=== PATIENT | female | born 1950 ===

== ENCOUNTER → 2018-04-26 | Outpatient (CLI) | payer MEDICARE, OTHER | LOC: PLD 14:34 → LAB SHORT 14:34 | DX: C50.911 Malignant neoplasm of unspecified site of right female breast (principal); Z17.0 Estrogen receptor positive status [ER+] | CPT/HCPCS: 88305; 88360 ==

== ENCOUNTER 2021-09-18 06:00 | Observation (INO) | payer MEDICARE, OTHER ==
[~2021-09-18] VITALS: Ht 162.6 cm; Wt 49.9 kg
[2021-09-18 06:41] LABS: BASOPHILS ABSOLUTE AUTO 0.02 K/mm3 (0.00-0.23); BASOPHILS PERCENT AUTO 0 % (0-2); EOSINOPHILS PERCENT AUTO 0 % (0-6); Hematocrit 18.1 % (33.0-51.0); IMMATURE GRAN ABSOLUTE AUTO 0.05 K/mm3 (0.00-0.10); IMMATURE GRAN PERCENT AUTO 1 % (0-1); LYMPHOCYTES ABSOLUTE AUTO 1.61 K/mm3 (0.84-5.20); LYMPHOCYTES PERCENT AUTO 16 % (21-46); MONOCYTES PERCENT AUTO 6 % (4-13); Mean Corpuscular Volume 66 fL (80-100); Mean Platelet Volume 9.2 fL (9.1-12.4); NEUTROPHILS ABSOLUTE AUTO 7.62 K/mm3 (1.96-9.15); NEUTROPHILS PERCENT AUTO 77 % (41-73); NRBC ABSOLUTE 0.03 K/mm3 (0.00-0.02); NRBC Auto 0.3 /100 WBC (0.0-0.2); Platelet Count 549 K/mm3 (150-400); RDW Coefficient Variation 20.3 % (11.7-14.2); RDW Standard Deviation 47.2 fL (35.1-46.3); Red Blood Cell Count 2.76 M/mm3 (3.80-5.20)
[2021-09-18 07:19] LABS: Hemoglobin 4.7 g/dL (11.5-16.0)
[2021-09-18 07:23] LABS: Alanine Aminotransfer (ALT/SGP 12 U/L (12-78); Albumin, Blood 2.1 g/dL (3.4-5.0); Albumin/Globulin Ratio 0.5 (0.8-1.8); Alk Phos 107 U/L (50-136); Anion Gap 9 mmol/L (6-16); Aspartate Aminotrans (AST/SGOT 14 U/L (12-37); Bilirubin, Total 0.3 mg/dL (0.1-1.0); Blood Urea Nitrogen 8 mg/dL (8-24); Bun/Creatinine Ratio 16.2 (12.0-20.0); CO2, Blood 21 mmol/L (21-32); Calcium, Blood 8.9 mg/dL (8.5-10.1); Chloride, Blood 109 mmol/L (98-108); Globulin, Blood 4.2 g/dL (2.2-4.0); Glomerular Filtration Rate >60 (60-); Glucose, Blood 92 mg/dL (70-99); Potassium, Blood 3.9 mmol/L (3.5-5.5); Sodium, Blood 139 mmol/L (136-145); Total Protein, Blood 6.3 g/dL (6.4-8.2)
[2021-09-18 08:07] LABS: Source, Urine Clean Catch
[2021-09-18 08:16] LABS: Appearance, Urine Hazy (Clear); Bilirubin, Urine Neg (Neg); Blood, Urine Neg (Neg); Color, Urine Yellow (P-Yellow); Glucose Qualitative, Urine Neg (Neg); Ketones, Urine 3+ (Neg); Leukocyte Esterase, Urine 1+ (Neg); Nitrite, Urine Neg (Neg); Protein, Urine Neg (Neg); Urobilinogen, Urine NORM (Normal)
[2021-09-18 08:45] LABS: Amorphous Mod (0-Heavy); Bacteria Mod /hpf; Red Blood Cells, Urine Rare /hpf (0-2); Squamous Epithelial Cells Few /hpf (Few); White Blood Cells, Urine 0-2 /hpf (0-5)
--- NOTE | 2021-09-18 09:58 | NUR ---
ED Palliative Care Consult Spoke with Dr Olmedo and discussed case. Pt has breast cancer diagnosed in 2016 and has likely metastisis. Pt chose homeopathic route and does not wishe to pursue any further interventions related to treatment of her cancer. Pt (Scarlet) is resting on gurney upon arrival. Spouse Margarito is at bedside. Engaged in therapeutic listening as Scarlet reports increased weakness and no longer able to ambulate. She reports dyspnea with exertion along with anxiety when dyspnea occurs. Scarlet reports only tolerating partial bed baths for the last 3 weeks and needs assistance. She also reports needing assistance with dressing. She states having a fair appetite but has difficulty with swallowing and will choke and cough on occasion. She reports feeling some sort of obstruction that interfers with her swallow. Scarlet reports having a son who lives in [facility] who plans to come up soon. She reports losing her daughter back in June with her receiving hospice services from [facility]. Scarlet reports her right breast wound from the cancer has a foul odor that is bothersome. She expresses concerns of how to care for it properly. Scarlet confirms her desire to focus on comfort at this stage in her life and states knowing that she is nearing end of life. She confirms wishes for hospice services through [facility] and is agreeable to be admitted to hospital until hospice services can be arranged. Educated on comfort care and hospice philosophy with V/U made by Aníbal. Scarlet reports morphine that is being offered is managing her pain and oxygen is managing her dyspnea. Assisted Scarlet with completing POLST. Pt's wishes are DNR and comfort measures only. Discussed considering ensure shakes to assist with nutrtion. Scarlet reports concerns regarding high sugar concentrate. Discussed glucerna shakes with Scarlet in agreement. Placed comfort care order set per V/O from Dr Olmedo. Dr Olmedo singed POLST and copy delivered to medical records. Returned original POLST to Aníbal with instructions to hang on refridgerator at home. Hospice referral placed with Pt's wishes for [facility] services. Spoke with ED RN and discussed case. PPS 40% KPS 40% ADLs 4/6 Pt may benefit from receiving Flagyl powder with dressing changes once home with hospice. Hospital currently does not carry this medication. Spoke with Dr rL who will consider Nystatin Powder. Palliative Care will remain available for symptom management and supportive visits.
--- NOTE | 2021-09-18 18:52 | NUR ---
Scarlet is 70 year old female admitted with bilateral breast cancer stage 4. She was initially presented to ER with shortness of breath and generalized weakness. Hemoglobin was 4.7 and hemotocrite 18.1. Was transferred to medical floor for comfort/ hospice care. On Arrival on the floor , she is alert and oriented x 3 , able to give history and answered question well. She reports signficant weight loss about 10 to 12 lbs in the last three month. Reports that she never been to hospital since she has breast cancer. Denies receiving any cancer treatment. Reports that her helped her at home and provided all necessary care. Was oriented to room and call light use . Resting in bed and call light within reach. Continue to monitor.
--- NOTE | 2021-09-19 05:06 | NUR ---
PATIENT WAS ALERT AND ORIENTED X4, STABLE VITALS, NO ACUTE CHANGES. PATIENT CURRENTLY ON COMFORT CARE DUE TO STAGE 4 BREAST CANCER. WOUND ON RIGHT BREAST WAS DRESSED. PATIENT REQUESTED A LOW DOSE OF MORPHINE AND ZOPHAN TWICE DURING THE SHIFT.PATIENT WAS VERY PLEASANT AND COOPERATIVE
--- NOTE | 2021-09-19 09:58 | NUR ---
Received referral from nurse child care assistant (Erasmo Fields) on 09/19/2021. Patient is to discharge with orders for hospice and family elected [facility]. Gathered supporting documentation for referral (face sheet, labs, imaging, progress notes, palliative care note, and H&P) and sent to [facility] personal injury legal assistant (Trevor Gruber) for review of hospice appropriateness and ability to accept patient onto service post discharge. Will await further information from hospice personal injury legal assistant regarding the above. Amber Belle Referral Liaison
--- NOTE | 2021-09-20 05:08 | NUR ---
PATIENT WAS ALERT AND ORIENTED X4, STABLE VITALS, NO ACUTE CHANGES. PATIENT IS ON 2L O2 . DRESSING INTACT, PATIENT WAS GIVEN MORPHINE AND ZOFRAN AND THE BEGINING OF THE SHIFT AND DID NOT CALL FOR ASSISTANCE OR PAIN MEDS ALL NIGHT.
--- NOTE | 2021-09-20 12:41 | NUR ---
Late Entry from 09/19/2021 at 1530: Received notification from [facility] Clinical Coordinator (Lola Erickson) that patient is hospice appropriate and able to be accepted onto service post discharge. Will attempt to meet with patient and family tomorrow- 09/20/2021 to further discuss the above. Will continue to monitor and follow for discharge. Amber Belle Referral Liaison
--- NOTE | 2021-09-20 12:43 | NUR ---
Late Entry from 09/20/2021 at 1100: Met with patient and patient's (Margarito Patel) to further discuss hospice services and the election of [facility]. Patient and are agreeable to the above. Discussed what hospice is (reserved for patients with a terminal diagnosis with life expectancy of 6 months or less). Discussed that some patients exceed the 6 months expectancy and stay on service and some patients stabilize and come off hospice. Patient and verbalized understanding of the above. Discussed with patient and that hospice service focuses on quality of life at the end of life and that rather than measuring the quantity of days, the quality of those days would be measured. Discussed with patient and that with hospice service the goal would be to keep the patient out of the hospital and comfortable by managing symptoms at home. Patient and verbalized understanding. Discussed the people, prescriptions, and equipment of hospice. People- discussed the team of people and their roles (RNs, chaplains, therapists, LCSWs, CNAs, and volunteers) that would be there to support not only the patient but also their family during this time. Explained to the patient and that the team would be custom tailored to the patient and family's needs during this time. Patient and verbalized understanding. Prescriptions- discussed that we utilize a mail order pharmacy ([facility]) to provide medications related to the hospice diagnosis and for symptom management. All other medications that patient chose to stay on would be patient's and/or patient's family's responsibility to provide and pay for. Patient and verbalized understanding. Discussed that upon discharge patient would be given three prescriptions, one for morphine 20mg/mL #30mL (0.25mL - 1mL PO/SL Q1H PRN SOB/pain), one for lorazepam 0.5mg #20 (1 - 2 PO Q4H PRN anxiety), and one for hyoscyamine 0.125mg SL tablets #30 (1 SL Q2H PRN secretions). Additionally, a prescription for ondansetron 4mg ODT #20 (1 PO/SL Q6H PRN N & V). Explained to the patient and that as patient would not yet be admitted to hospice service at the time of discharge those prescriptions would be patient/patient's family's responsibility to fill and pay for. Patient and verbalized understanding. Equipment- discussed with patient and that we contract through [employer] to provide DME such as hospital beds, commodes, etc. to patient. Wrote order for DME (hospital bed, full rails, over bed table, pump & pad, oxygen & e-tank [with e-tank to be delivered to [facility] room 313 prior to discharge] at 1-5 LPM) and sent to [facility] for delivery on Sunday- 09/21/2021. Discussed with patient and that [facility] does not supply the sheets for the beds. Discussed that one of two options can be used- either a twin extra-long fitted sheet OR a wood sized flat sheet wrapped around the pump & pad. Patient and verbalized understanding. Discussed with patient and that once patient was admitted onto hospice services the goal would be for them to contact us ([facility]) over contacting 911 or presenting back to the hospital/ED. Patient and verbalized understanding. Discussed the tentative discharge plans for Sunday- at 1030 with preferred mode of transportation- medical transport via gurney. Explained to patient and that I would arrange transportation for patient. Patient and verbalized understanding. Offered a chance for patient and to ask questions regarding the above of which there were none. Will continue to monitor and follow as appropriate for discharge. Amber Belle Referral Liaison
--- NOTE | 2021-09-20 16:10 | NUR ---
pt resting no overt signs of pain . will continute to monitor.
--- NOTE | 2021-09-20 18:25 | NUR ---
Alert and oriented x3 . able to make needs known. c/o right chest and back pain , morphine sulfate was given twice ,it was effective. Right upper chest dressing CDI. Voided using bed welch x2. Skin is jaundice. Vital signs are stable. Call appropriately and call light within reach.Continue to monitor.
--- NOTE | 2021-09-21 06:08 | NUR ---
PATIENT WAS ALERT AND ORIENTED AND X4, STABLE VITAL SIGNS, NO ACUTE CHANGES. PATIENT WAS GIVEN MORPHINE AND ZOFRAIN TWICE DURING THE SHIFT FOR PAIN AND NAUSEA RESPECTIVELY. VEGA IS PATENT AND PT PUT OUT CLEAR URINE. COMFORT CARE. POSSIBLE DISCHAGE TODAY.
[2021-09-21] MEDS ORDERED: ATROPINE SULFATE2 M1 SL (10:27)
[2021-09-21] MEDS ORDERED: DULCOLAX400 MG/5 M PO (10:28)
[2021-09-21] MEDS ORDERED: Ativan1 MG PO (10:28)
[2021-09-21] MEDS ORDERED: ONDA4 PO (10:29)
[2021-09-21] MEDS ORDERED: MORP20L SL (10:29)
[2021-09-21] MEDS ORDERED: TRANSDERM-SCOP1 EAC8 TD (10:30)
[2021-09-21] MEDS ORDERED: PROC5 PO (10:30)
--- NOTE | 2021-09-21 11:12 | NUR ---
Met with Pt. priior to discharge. Pt. was alert and sitting up in bed. Pt. shared openly about her decision to move into hospice. Pt. did not display any distress, and freely shared of her hope in [facility]. Facilitated a Life review. Listened empatheticlly. Family recently lost a daughter to cancer. Offered emotional support, and inquired if family had [place] support when she is discharged. They do not have a local [place] community, as they have relatively recently moved back to [place]. Pt. verbalized gratitude for the care and support she received at hospital. Pastoral prayer was given.
--- NOTE | 2021-09-21 11:33 | NUR ---
Patient is to discharge at 1030 with orders for hospice. Contacted [facility] (Unknown, Renetta in Billing) to arrange gurney transport to patient's residence. Pick-up at 1030 will be provided by the above. Faxed copy of face sheet, PCS form, and DNR status to [facility] Business office per protocol. Placed copies of the above in nurse fast food server for transport company manager. Notified nurse medical care administrator (Erasmo Fields), ACC (Ruby Jeffrey), Charge RNs (Salome Ken and Mago Cardona), and bedside RN (Mateo Dawson) of the above. All are agreeable to the above. Requested discharge orders from hospitalist (Dr. Hernandez) through nurse medical care administrator. Provided hard copy prescriptions for morphine and lorazepam to patient's (Margarito Patel) on Sunday- 09/20/2021. Faxed copies of discharge order and med list to [facility] facialist. No further interventions required. Amber Belle Referral Liaison
--- NOTE | 2021-09-21 11:39 | NUR ---
Comfort Care Visit Pt resting in bed upon arrival. Pt reports her dyspnea and pain are managed with current regimen. Pt reports eargarness to go home today. Plan for Pt to D/C home with [facility] this AM. Answered questions regarding her oxygen use. Pt expresses appreciation and reports no other concerns at this time. Spoke with [facility] Liasuzie Clark and discussed case. Provided copy of Pt's POLST. Palliative Care will remain available.
--- NOTE | 2021-09-21 13:15 | NUR ---
Alert and oriented x3 , able to make needs known. c/o right upper chest wound pain , morphine sulfate was given and it was effective. Right upper wound dressing CDI. Patient was tearful at times and acceptable of her medical condition.Expressed comfort and understanding. Patient discharged home with home health. She acknowleged discharged instructions.
== END 2021-09-21 13:15 | disposition hospice, home (50) ==
LOC: ER 06:00 → ERHOLD 06:01 → MEDS 18:12
PROVIDERS: Emergency Medicine; ADMIT Internal Medicine
DX: C50.919 Malignant neoplasm of unspecified site of unspecified female breast (principal); C79.51 Secondary malignant neoplasm of bone; S21.001A Unspecified open wound of right breast, initial encounter; J96.01 Acute respiratory failure with hypoxia; D50.9 Iron deficiency anemia, unspecified; R60.9 Edema, unspecified; E43 Unspecified severe protein-calorie malnutrition; R82.90 Unspecified abnormal findings in urine; Z51.5 Encounter for palliative care; Z66 Do not resuscitate; Z68.1 Body mass index [BMI] 19.9 or less, adult; X58.XXXA Exposure to other specified factors, initial encounter
CPT/HCPCS: 36415; 71046; 80053; 81001; 83690; 85025; 87077; 87086; 87186; 93005; 93010; 94760; 96374; 96375; 99285-25; A9270; G0378; J2270; J2405; J7030